=== PATIENT | male | born 1945 | race Caucasian/White ===

== ENCOUNTER → 2017-09-09 | Outpatient (CLI) | payer OTHER | LOC: FIMAGING 11:15 | PROVIDERS: ATTEND Internal Medicine | DX: M19.072 Primary osteoarthritis, left ankle and foot (principal) ==

== ENCOUNTER → 2017-10-22 | Outpatient (CLI) | payer OTHER | LOC: EEVIPCON 09:27 → BMCIMAGING 09:27 | PROVIDERS: ATTEND Internal Medicine | DX: S82.435K Nondisplaced oblique fracture of shaft of left fibula, subsequent encounter for closed fracture with nonunion (principal); W11.XXXD Fall on and from ladder, subsequent encounter ==